=== PATIENT | male | born 1995 | race Caucasian/White ===

== ENCOUNTER 2017-05-28 19:59 | Emergency (ER) | payer BC ==
--- NOTE | 2017-05-28 20:06 | EDPHY ---
H & P Time Seen by Provider: 05/28/17 20:05 HPI/ROS: Chief Complaint: Right foot pain HPI: The patient presents the ED with complaints of acute right foot pain. The patient dropped a 45 lb weight lifting plate on his right foot earlier this evening. He complains of pain across the lower mid foot. He has had painful ambulation. He denies any acute numbness or weakness. The patient denies additional traumatic injury. He does report associated soft tissue swelling. REVIEW OF SYSTEMS: Neuro: no headache, numbness, weakness Musculoskeletal: as above Skin: no abrasion or lacerations Source: Patient - Medical/Surgical History PMH: Past medical history: Noncontributory - Family History Significant Family History: No pertinent family hx - Physical Exam Exam: General Appearance: Alert, no distress Skin: Soft tissue swelling, mild ecchymosis Extremities: Tenderness to palpation and of soft tissue swelling noted along the dorsum of the right foot. Vascular: Normal 2+ dorsalis pedis and posterior tibial pulse, normal capillary refill Neurological: Sensation intact to light touch throughout the right foot Constitutional: Initial Vital Signs Temperature (C) 36.8 C 05/28/17 20:04 Heart Rate 97 05/28/17 20:04 Respiratory Rate 18 05/28/17 20:04 Blood Pressure 138/86 H 05/28/17 20:04 O2 Sat (%) 97 05/28/17 20:04 O2 Delivery Mode Room Air Allergies/Adverse Reactions: No Known Allergies Allergy (Unverified 05/08/13 03:11) Medical Decision Making - Diagnostics Imaging Results: Right foot x-ray: Three views, images reviewed by myself, negative for acute fracture. ED Course/Re-evaluation: The patient presents to the ED for evaluation of right foot trauma after he dropped a weight on his foot. X-rays demonstrate no obvious fracture by my interpretation. Formal interpretation by Radiology pending. The patient will be advised to ice the area. He is provided crutches. The patient can use ibuprofen as needed for pain. The patient is advised to follow up with our on- call orthopedic surgeon for any pain which persists past 5-7 days as this may be the sign of an injury not seen on the x-ray today. Differential Diagnosis: Differential diagnosis considered includes fracture, sprain, dislocation Departure - Departure Disposition: Home, Routine, Self-Care Clinical Impression: Contusion of right foot Condition: Good Instructions: Contusion in Adults (ED) Additional Instructions: 1. Crutches as needed for ambulation. 2. Your x-ray demonstrates no evidence of an obvious fracture. Please follow up with the orthopedic surgeon you have been referred to for any pain which persists past 5-7 days as this may be the sign of an injury not seen on the x- ray today. 3. Ice as directed. Take Ibuprofen or Motrin 600 mg by mouth three times a day. Referrals: Barbra Kilpatrick MD [Medical Doctor] - As per Instructions
[2017-05-28 20:21] VITALS: O2SAT 97
[2017-05-28 20:39] VITALS: BP 106/70; PULSE 72; RESP 16; TEMP 97.9
== END 2017-05-28 20:42 | disposition home or self-care (01) ==
DX: S90.31XA Contusion of right foot, initial encounter (principal); W20.8XXA Other cause of strike by thrown, projected or falling object, initial encounter; Y99.8 Other external cause status; Y93.89 Activity, other specified